=== PATIENT | female | born 1985 | race Caucasian/White ===

== ENCOUNTER 2019-03-21 17:16 | Inpatient (IN) | payer MEDICAID ==
[~2019-03-21] VITALS: Ht 152.4 cm; Wt 61.9 kg
[2019-03-21 17:45] VITALS: Ht 152.4 cm; Wt 61.9 kg
[2019-03-21] MEDS: LACTATED RINGER'S 1,000 ML IV SCH ×2 (18:43→20:37)
[2019-03-21] MEDS ORDERED: TERBUTALINE 1 ML ONE (18:46)
[2019-03-21] MEDS ORDERED: TERBUTALINE 1 MG/ML INJ SC ONE (19:00)
[2019-03-21] MEDS ORDERED: MAGNESIUM SULFATE 4 GM/100 ML 100 ML IV ONE (20:00)
[2019-03-21] MEDS ORDERED: ACETAMINOPHEN 325 MG TAB PO PRN (20:00)
[2019-03-21] MEDS: BETAMET NA PHOS/AC(6 MG/ML) 2 ML INJ SYG IM SCH (21:04)
[2019-03-21] MEDS: MAGNESIUM SULFATE 20 GM/500 ML 500 ML IV SCH (21:34)
--- NOTE | 2019-03-22 00:26 | TRIAGE ---
OB Triage Datetime Report Generated by CPN: 03/22/2019 00:26 Datetime: 03/21/2019 23:50 Labor Evaluation Frequency: OCCASIONAL Monitor Mode: External Duration (sec)2399: 40-50 Quality: Mild Resting Tone [place]: Relaxed Heart Rate FHR Baseline Rate: 130 Monitor Mode: External US Variability: Moderate 6-25 bpm Accelerations: 15X15 Decelerations: None Category: Category I Pain Assessment Pain Scale: 3 Pain Presence: Intermittent Pain Type: Contraction Pain Location: Abdomen; Back Pain Goal: 3 Pain Relief Measures: Comfort Measures Datetime: 03/21/2019 22:50 Labor Evaluation Frequency: IRREGULAR Monitor Mode: External Duration (sec)2399: 40-60 Quality: Mild Resting Tone [place]: Relaxed Heart Rate FHR Baseline Rate: 130 Monitor Mode: External US Variability: Moderate 6-25 bpm Accelerations: 15X15 Decelerations: None Category: Category I Pain Assessment Pain Scale: 3 Pain Presence: Intermittent Pain Type: Contraction Pain Location: Abdomen; Back Pain Goal: 3 Pain Relief Measures: Comfort Measures Datetime: 03/21/2019 21:55 Stage of : Antepartum Assessment Type: Ongoing Assessment Maternal Assessment Level of Consciousness: Fully Conscious DTR's/Clonus: DTRs 2+; No Clonus Headache: Denies Blurred Vision: No Respiratory Effort: Unlabored; Regular Rhythm; Equal Expansion Breath Sounds, Left: Clear and Equal Breath Sounds, Right: Clear and Equal Nausea/Vomiting: Denies RUQ Epigastric Pain: Denies Lower Extremities Edema: None Degree: None Upper Extremities Edema: None Degree: None Facial Edema: None Temperature Route: Oral Fall Risk Assessment History of Falling: (0) No Secondary Diagnosis: (0) No Ambulatory Aid: (0) Bedrest/Nurse Assist IV Therapy: (0) No Gait: (0) Normal/Bedrest/Immobile Mental Status: (0) Oriented to Own Ability Fall Score: 0 Fall Risk Score Definition: No Risk: No action required Pain Assessment Pain Scale: 3 Pain Presence: Intermittent Pain Type: Cramping; Contraction Pain Location: Abdomen; Back Pain Goal: 3 Pain Relief Measures: Comfort Measures Datetime: 03/21/2019 21:52 Monitor Mode: External Contraction Comments: PLACED. Monitor Mode: External US Comments: PLACED AFTER PT TRANSFERRED FROM LND. Datetime: 03/21/2019 21:40 Stage of : Antepartum Maternal Assessment Level of Consciousness: Fully Conscious Labor Evaluation Frequency: IRREGULAR Monitor Mode: External Duration (sec)2399: 40-70 Quality: Mild Pattern: Normal: <= 5 Contractions in 10 Minutes Resting Tone [place]: Relaxed Heart Rate FHR Baseline Rate: 135 Monitor Mode: External US Variability: Moderate 6-25 bpm Accelerations: 15X15 Decelerations: None Category: Category I Datetime: 03/21/2019 21:00 Stage of : Antepartum Maternal Assessment Level of Consciousness: Fully Conscious Labor Evaluation Frequency: IRREGULAR Monitor Mode: External Duration (sec)2399: 40-70 Quality: Mild Pattern: Normal: <= 5 Contractions in 10 Minutes Resting Tone [place]: Relaxed Heart Rate FHR Baseline Rate: 140 Monitor Mode: External US Variability: Marked >25 bpm Accelerations: 15X15 Decelerations: None Category: Category II Datetime: 03/21/2019 20:00 Stage of : OB Triage Maternal Assessment Level of Consciousness: Fully Conscious Labor Evaluation Frequency: IRREGULAR Monitor Mode: External Duration (sec)2399: 40-70 Quality: Mild Pattern: Normal: <= 5 Contractions in 10 Minutes Resting Tone [place]: Relaxed Heart Rate FHR Baseline Rate: 140 Monitor Mode: External US Variability: Moderate 6-25 bpm Accelerations: 15X15 Decelerations: None Category: Category I Datetime: 03/21/2019 19:42 Pain Assessment Pain Scale: 7 Pain Presence: Intermittent Pain Type: Contraction Pain Location: Abdomen; Back Pain Goal: 2 Pain Relief Measures: Comfort Measures Datetime: 03/21/2019 19:00 Stage of : OB Triage Maternal Assessment Level of Consciousness: Fully Conscious DTR's/Clonus: DTRs 1+ Headache: Denies Breath Sounds, Left: Clear and Equal Breath Sounds, Right: Clear and Equal Nausea/Vomiting: Denies RUQ Epigastric Pain: Denies Labor Evaluation Frequency: IRREGULAR Monitor Mode: External Duration (sec)2399: 40-70 Quality: Mild Pattern: Normal: <= 5 Contractions in 10 Minutes Resting Tone [place]: Relaxed Heart Rate FHR Baseline Rate: 135 Monitor Mode: External US Variability: Moderate 6-25 bpm Accelerations: 15X15 Decelerations: None Category: Category I Pain Assessment Pain Scale: 6 Pain Presence: Intermittent Pain Type: Contraction Pain Location: Abdomen; Back Pain Goal: 3 Vaginal Bleeding: None Cervix, Consistency: Firm Cervix, Position: Posterior Datetime: 03/21/2019 18:29 Stage of : OB Triage Maternal Assessment Level of Consciousness: Fully Conscious DTR's/Clonus: DTRs 1+ Headache: Denies Blurred Vision: No Respiratory Effort: Unlabored Breath Sounds, Left: Clear and Equal Breath Sounds, Right: Clear and Equal Nausea/Vomiting: Denies RUQ Epigastric Pain: Denies Facial Edema: None Labor Evaluation Frequency: 2-4 Monitor Mode: External Duration (sec)9239: 50-70 Quality: Mild Pattern: Normal: <= 5 Contractions in 10 Minutes Resting Tone [place]: Relaxed Heart Rate FHR Baseline Rate: 135 Monitor Mode: External US Variability: Moderate 6-25 bpm Accelerations: 15X15 Decelerations: None Category: Category I Pain Assessment Pain Scale: 6 Pain Presence: Intermittent Pain Type: Contraction Pain Location: Abdomen; Back Pain Goal: 3 Vaginal Exam Dilatation (cms): 0.0 Effacement (%): 0 Station: -3 Exam By: VÍCTOR HUERTA Vaginal Bleeding: None Cervix, Consistency: Firm Cervix, Position: Posterior Datetime: 03/21/2019 17:52 Respiratory Effort: Unlabored Breath Sounds, Left: Clear and Equal Breath Sounds, Right: Clear and Equal Labor Evaluation Frequency: NONE Monitor Mode: External Resting Tone [place]: Relaxed Heart Rate FHR Baseline Rate: 135 Variability: Moderate 6-25 bpm Accelerations: 15X15 Decelerations: None Category: Category I Pain Assessment Pain Scale: 6 Pain Presence: Intermittent Pain Type: Cramping Pain Location: Abdomen; Back Pain Goal: 3 Datetime: 03/21/2019 17:48 Assessment Type: Triage Maternal Assessment Level of Consciousness: Fully Conscious DTR's/Clonus: DTRs 2+; No Clonus Headache: Denies Blurred Vision: No Respiratory Effort: Unlabored; Regular Rhythm; Equal Expansion Breath Sounds, Left: Clear and Equal Breath Sounds, Right: Clear and Equal Nausea/Vomiting: Denies RUQ Epigastric Pain: Denies Lower Extremities Edema: None Degree: None Upper Extremities Edema: None Degree: None Facial Edema: None Fall Risk Assessment History of Falling: (0) No Secondary Diagnosis: (0) No Ambulatory Aid: (0) Bedrest/Nurse Assist IV Therapy: (0) No Gait: (0) Normal/Bedrest/Immobile Mental Status: (0) Oriented to Own Ability Fall Score: 0 Fall Risk Score Definition: No Risk: No action required Datetime: 03/21/2019 17:43 EGA: 33.1 Arrived By: Ambulatory Datetime: 03/21/2019 16:57 Time of Arrival: 03/21/2019 16:57 Arrived By: Ambulatory Arrived From: Home Chief Complaint: PT CAME IN C/O LEAKING FLUID X 3 DAYS AND ABDOMINAL AND BACK PAIN Movement: Present Contractions: Denies/Absent Rupture of Membranes: Denies Vaginal Discharge: Denies Recent Sexual Intercouse: Denies Abdominal Trauma: Not Applicable Additional Patient Complaints: NONE Time Provider Notified: 03/21/2019 19:55 Provider Notified: ZOEY Initial Plan: CX LENGHT, BPP, YOSEF, EFW, UA, MONITOR, TERB
--- NOTE | 2019-03-22 01:54 | HP ---
Date/Time of Note Date/Time of Note DATE: 03/22/19 TIME: 01:39 OB - History Hx of Present Free Text/Dictation Late entry note. Patient seen on 03/21/2019 33 years old -2-1-3 with single intrauterine at 33 weeks and 1 day complaining of back pain, abdominal cramp and possible leakage of fluid. She states good movement. She denies nausea, vomiting, shortness of breath, chest pain, headache, visual changes, vaginal bleeding. Risk factors: 1. History of 2 delivery at 26 and 36 weeks 2. Previous delivery x2 Chief Complaint: Abdominal cramps, back pain, possible leakage of fluid Estimated Due Date: May 08, 2019 : 5 Para: 3 Spontaneous : 1 Therapeutic : 0 Care: Good Care Ultrasounds: Normal mid trimester US Obstetrical Complications: None, Other (To ) Medical Complications: None Past Family/Social History * Past Medical: None Past surgical history: delivery x2 Family: Negative Obstetric history: 2 delivery at 26 weeks and 36 weeks. She had one normal delivery and then to delivery OB Admission Exam Vital Signs Vital Signs Blood pressure 128/76, pulse rate 72/minutes, respiratory rate 16/minutes, temperature 98.5 Physical Exam HEENT: WNL Heart: Rhythm Normal Lungs: Clear Abdomen: WNL Extremities: Normal Reflexes: Normal Membranes: Intact Heart Rate: 140's Accelerations: Accelerations Present Decelerations: No Decelerations Varibility: Moderate Contractions on Admission: 6-10 Minutes Apart Intensity: Moderate Last 72 hours Lab Results CBC & BMP 03/21/19 22:50 Liver Function Test 03/21/19 22:50 Alanine Aminotransferase (ALT/SGPT) 18 Albumin 3.5 Alkaline Phosphatase 155 H Aspartate Amino Transf (AST/SGOT) 20 Direct Bilirubin 0.00 Total Protein 6.5 OB Assessment/Plan Induction Method: per Pitocin Protocol Other plan: 33-year-old -2-1-3 with history of 2 prior previous at 26 and 36 and 2 delivery at 33 weeks and 1 day with threatened labor -FHR: No sign of metabolic acidosis- Category I -Continuous EFM, toco -CBC, blood type and screen, CMP -Urinalysis and urine culture -GBS clture -Ultrasound performed EFW 2043 g, cervical length 2.6, YOSEF 17.1, biophysical profile 8 out of 8 -Speculum exam performed no leakage or gush of fluid seen. Nitrazine test negative -Betamethasone 12 mg daily x2 and magnesium sulfate tocolysis -Please see the orders -Obtain record -Perinatology and neonatology consult DEANDRA GREER March 22, 2019 01:53
[2019-03-22] MEDS: LACTATED RINGER'S 1,000 ML IV SCH ×4 (02:45→18:45)
[2019-03-22] MEDS: MAGNESIUM SULFATE 20 GM/500 ML 500 ML IV SCH ×2 (06:30→17:29)
[2019-03-22] MEDS: PRENATAL VITAMIN PO SCH (09:07)
[2019-03-22] MEDS: DOCUSATE SODIUM 100 MG CAP PO SCH (09:07)
--- NOTE | 2019-03-22 16:14 | PN ---
Date/Time of Note Date/Time of Note DATE: 03/22/19 TIME: 16:07 OB Subjective Subjective Subjective Date of admission: 03/21/2019 Hospital day# 2 Patient seen and examined. She states good movement. She denies nausea, vomiting, shortness of breath, chest pain, headache, visual changes, vaginal bleeding or LOF. She is complaining of back pain OB Objective Objective Objective General: Patient appears well, alert and oriented, NAD, appropriate mood and affect ABD: gravid, soft, non-tender. Back: No CVA tenderness (B/L) LE: Mild edema. No clubbing, cyanosis, edema, thigh or calf tenderness bilaterally FHT: 145 bpm , moderate variability with acceleration, no deceleration-category I Contractions: Occasional OB Assessment/Plan Other plan: 33-year-old -2-1-3 with history of 2 prior previous at 26 and 36 and 2 delivery at 33 weeks and 2 day with threatened labor in current -FHR: No sign of metabolic acidosis- Category I -Continuous EFM, toco -SVE: FT/thick/high/cephalic/intact, done last night -Ultrasound performed on : EFW 2043 g, cervical length 2.6, YOSEF 17.1, biophysical profile 8 out of 8 -She received one dose of Betamethasone at 21:00 last night, will receive second dose today, cont magnesium sulfate as tocolysis -Perinatology and neonatology consult DEANDRA GREER March 22, 2019 16:14
[2019-03-22] MEDS: BETAMET NA PHOS/AC(6 MG/ML) 2 ML INJ SYG IM SCH (21:47)
[2019-03-23] MEDS: MAGNESIUM SULFATE 20 GM/500 ML 500 ML IV SCH ×2 (03:44→15:16)
[2019-03-23] MEDS: AL HYDROX/MG HYDROX/SIMETH 30 ML CUP PO PRN (04:22)
[2019-03-23] MEDS: LACTATED RINGER'S 1,000 ML IV SCH ×2 (08:51→21:38)
[2019-03-23] MEDS: PRENATAL VITAMIN PO SCH (11:24)
[2019-03-23] MEDS: DOCUSATE SODIUM 100 MG CAP PO SCH (11:24)
--- NOTE | 2019-03-23 14:19 | CONS ---
DATE OF ADMISSION: 03/21/2019 DATE OF CONSULTATION: 03/23/2019 HISTORY OF PRESENT ILLNESS: The patient is a G5, P3 at 33 weeks and 3 days, presented with l abor. Cervical length 2.6 cm. She received betamethasone on the and . Currently on magnes ium sulfate. RECOMMENDATIONS: Continue with the betamethasone 24 hours after the second dose of betamethasone, th en discontinue after a few hours. If there is no change in the cervical length and patient is comfor table, she can be discharged home with labor precautions. Dictated By: MIESHA WYATT/ANDRES Conf#: [id number] DID#: [id number]
--- NOTE | 2019-03-23 16:55 | PN ---
Date/Time of Note Date/Time of Note DATE: 03/23/19 TIME: 16:49 OB Subjective Subjective Subjective Denies any leaking of fluid, vaginal bleeding decreased movement. Comfortable in bed. Complains of epigastric pain and heartburn OB Objective Objective Objective GA: A&O, NAD Abdomen: soft, Gravid. size consistent with date. NST: Cat 1 , appropriate for gestational age no contraction on the monitor Lungs: Clear to auscultation bilaterally CV: RRR, no cord palpable negative Homans sign Bilateral 2 + patellar reflexes noted CBC & BMP 03/21/19 22:50 Liver Function Test 03/21/19 22:50 Alanine Aminotransferase (ALT/SGPT) 18 Albumin 3.5 Alkaline Phosphatase 155 H Aspartate Amino Transf (AST/SGOT) 20 Direct Bilirubin 0.00 Total Protein 6.5 Magnesium Level Test 03/22/19 00:45 03/22/19 07:16 03/22/19 12:09 03/22/19 18:46 Magnesium Level 4.9 H 5.7 *H 5.8 *H 5.6 *H Test 03/23/19 00:34 03/23/19 06:57 Magnesium Level 5.9 *H 5.6 *H OB Assessment/Plan Other Assessment: IUP at 33 weeks and 3 days History of x2 admitted for contractions, Status post 2 doses of steroids and currently on magnesium No evidence of magnesium toxicity Epigastric pain, GERD symptoms Doing well Continue magnesium until 24 hours after last dose of steroid GERD symptoms,, Pepcid and Maalox, keep the head of the bed elevated Expectant management Follow-up with perinatologist VALERIO CRUZ MD March 23, 2019 16:55
--- NOTE | 2019-03-23 23:56 | QN ---
Documentation Comment called regarding on discontinuation of magnesium sulfate. more than 24hrs after 2nd dose of BMZ also patient had chest pain IUP 33w3d with short cervix 2.6cm plan d/c mg sulfate repeat CVL in am EDITH ZULETA MD March 23, 2019 23:56
[2019-03-24] MEDS: LACTATED RINGER'S 1,000 ML IV SCH ×2 (01:17→09:57)
[2019-03-24] MEDS: PRENATAL VITAMIN PO SCH (09:09)
[2019-03-24] MEDS: DOCUSATE SODIUM 100 MG CAP PO SCH (09:09)
[2019-03-24] MEDS: AL HYDROX/MG HYDROX/SIMETH 30 ML CUP PO PRN (09:56)
--- NOTE | 2019-03-24 11:58 | QN ---
Documentation Comment Patient is a 33-year-old 5 para 3 at 33 weeks and 4 days of gestation with estimated date of delivery May 08, 2019 admitted with labor Patient status post magnesium sulfate, status post steroids for lung maturity She reports positive movement, denies uterine contractions denies vaginal bleeding or leaking fluid, heart rate tracing category 1 Patient's past obstetrical history significant for 1.prior at full-term 2. delivery at 26 weeks of gestation with cerebral palsy 3.second trimester loss twins at 14 weeks of gestation 4. delivery at 36 weeks of gestation Vital signs stable Urine Results - 72 Hrs Test 03/21/19 17:52 Urine Color YELLOW (YELLOW) Urine Clarity SLIGHTLY CLOUDY (CLEAR) Urine pH 6.0 (5.0-9.0) Urine Specific [place] 1.015 (1.003-1.030) Urine Ketones 1+ mg/dL (NEGATIVE) H Urine Nitrite NEGATIVE mg/dL (NEGATIVE) Urine Bilirubin NEGATIVE mg/dL (NEGATIVE) Urine Urobilinogen 1+ mg/dL (NEGATIVE) H Urine Leukocyte Esterase NEGATIVE Jimbo/ul Urine Microscopic RBC 9 /HPF (0-5) H Urine Microscopic WBC 1 /HPF (0-5) Urine Squamous Epithelial Cells FEW /HPF (FEW) Urine Bacteria FEW /HPF (NONE SEEN) A Urine Hemoglobin 2+ mg/dL (NEGATIVE) H Urine Glucose NEGATIVE mg/dL (NEGATIVE) Urine Total Protein NEGATIVE mg/dl (NEGATIVE) Hematology - 72 Hrs Test 03/21/19 22:50 Hematocrit 35.2 % (37.0-47.0) L Hemoglobin 11.8 g/dl (12.0-16.0) L Mean Corpuscular Hemoglobin 30.5 pg (29.0-33.0) Mean Corpuscular Hemoglobin Concent 33.5 g/dl (32.0-37.0) Mean Corpuscular Volume 91.0 fl (82.0-101.0) Mean Platelet Volume 10.9 fl (7.4-10.4) H Platelet Count 243 10^3/UL (140-415) Red Blood Count 3.87 10^6/ul (4.20-5.40) L Red Cell Distribution Width 12.5 % (11.5-14.5) White Blood Count 14.4 10^3/ul (4.8-10.8) H Chemistry Test 03/21/19 22:50 03/22/19 00:45 03/22/19 07:16 03/22/19 12:09 Sodium Level 135 mmol/L (135-144 ) Potassium 4.5 Level mmol/L (3.5-5.1 ) Chloride Level 103 mmol/L (97-110) Carbon Dioxide 22 Level mmol/L (21-31) Anion Gap 10 (5-13) Blood Urea 9 mg/dl (7-20) Nitrogen Creatinine 0.50 mg/dl (0.44-1.0 0) Est Glomerular > 60 Filtrat mL/min (>60) Rate mL/min Glucose Level 97 mg/dl (70-220) Calcium Level 8.9 mg/dl (8.4-10.2 ) Total 0.6 Bilirubin mg/dl (0.2-1.3) Direct 0.00 Bilirubin mg/dl (0.00-0.2 0) Indirect 0.6 Bilirubin mg/dl (0-1.1) Aspartate Amino 20 IU/L (15-46) Transf (AST/SGO T) Alanine 18 IU/L (13-69) Aminotransferas e (ALT/SGPT) Alkaline 155 Phosphatase IU/L (42-121) H Total Protein 6.5 g/dl (6.1-8.1) Albumin 3.5 g/dl (3.3-4.9) Globulin 3.00 g/dl (1.3-3.2) Albumin/Globuli 1.16 n Ratio Magnesium 4.9 5.7 5.8 Level mg/dl (1.7-2.5 mg/dl (1.7-2.5 mg/dl (1.7-2.5 ) H ) *H ) *H Test 03/22/19 18:46 03/23/19 00:34 03/23/19 06:57 03/23/19 22:04 Magnesium 5.6 5.9 5.6 5.0 Level mg/dl (1.7-2.5) mg/dl (1.7-2.5 mg/dl (1.7-2.5 mg/dl (1.7-2.5 *H ) *H ) *H ) H PROCEDURE: Obstetric ultrasound CLINICAL INDICATION: Pain labor TECHNIQUE: Multiple transverse and longitudinal grayscale images of the pelvis were obtained transabdominally and transvaginally.. COMPARISON: 03/21/2019 FINDINGS: The cervix has a length of 3.2 cm. There is possible mild funneling. There is a single live intrauterine gestation. Cardiac activity is present with 161 beats per minute. There is a vertex presentation. The placenta is anterior. There is no evidence for an abruption or placenta previa. RPTAT: AA IMPRESSION: Cervix length measures 3.2 cm. Mild funneling is noted. .Harmeet Santos MD, MD Date Time Electronically viewed and signed by .Harmeet Santos MD, MD on 03/24/2019 08:03 .S/ CC: EDITH ZULETA MD [id number] Abdomen gravid Extremities nontender Assessment and plan Patient was highly recommended that she should be placed on [employer] as outpatient Prometrium 200 mg per vagina at bedtime was ordered Estimated weight to be done today Perinatology follow-up Continue with strict pelvic and bedrest FRANCIS KEARNEY MD March 24, 2019 11:58
[2019-03-24] MEDS ORDERED: PROGESTERONE 100 MG CAP VAG SCH (21:00)
[2019-03-25] MEDS: PRENATAL VITAMIN PO SCH (09:13)
[2019-03-25] MEDS: DOCUSATE SODIUM 100 MG CAP PO SCH (09:13)
--- NOTE | 2019-03-25 11:08 | QN ---
Documentation Comment Patient is a 33-year-old 5 para 3 at 33 weeks and 5 days of gestation with estimated date of delivery May 08, 2019 admitted with labor Patient status post magnesium sulfate, status post steroids for lung maturity She reports positive movement, denies uterine contractions denies vaginal bleeding or leaking fluid, heart rate tracing category 1 Patient strongly desires to go home today I spoke with Dr. Sharp/perinatologist and she indicated that if the cervical length has remained the same/unchanged patient can be discharged home with instructions for strict pelvic rest and bedrest and she should follow-up as outpatient with perinatology Prescription for Prometrium was given PROCEDURE: US OB biophysical profile. Ultrasound cervix CLINICAL INDICATION: decreased movements, labor TECHNIQUE: Multiple sonographic images of the pelvis were obtained. In addition, transvaginal images of the cervix were obtained. The images were reviewed on a PACS workstation. COMPARISON: US PELVIS 03/21/2019 FINDINGS: The cervix measures 3.35 cm in length. There is a single live intrauterine gestation. Cardiac activity is present with 132 beats per minute. There is a vertex presentation. The placenta is anterior. There is no evidence of placental abruption. YOSEF = 14.1 cm. Biophysical profile: movement 2/2 tone 2/2. breathing 2/2 YOSEF 2/2 Total 06/15 RPTAT: AA . IMPRESSION: Normal biophysical profile. Cervix measures 3.35 cm in length. .Harmeet Santos MD, MD Date Time Electronically viewed and signed by .Harmeet Sanots MD, on 03/25/2019 12:09 .S/ CC: FRANCIS KEARNEY MD [id number] FRANCIS KEARNEY MD March 25, 2019 11:08
--- NOTE | 2019-03-25 11:11 | DS ---
Date/Time of Note Date/Time of Note DATE: 03/25/19 TIME: 11:10 Obstetrical Discharge Record Final Diagnosis Final Diagnosis: not delivered Other Final Diagnosis Patient is a 33-year-old 5 para 3 at 33 weeks and 5 days of gestation with estimated date of delivery May 08, 2019 admitted with labor Patient status post magnesium sulfate, status post steroids for lung maturity She reports positive movement, denies uterine contractions denies vaginal bleeding or leaking fluid, heart rate tracing category 1 Patient strongly desires to go home today I spoke with Dr. Sharp/perinatologist and she indicated that if the cervical length has remained the same/unchanged patient can be discharged home with instructions for strict pelvic rest and bedrest and she should follow-up as outpatient with perinatology Prescription for Prometrium was given PROCEDURE: US OB biophysical profile. Ultrasound cervix CLINICAL INDICATION: decreased movements, labor TECHNIQUE: Multiple sonographic images of the pelvis were obtained. In addition, transvaginal images of the cervix were obtained. The images were reviewed on a PACS workstation. COMPARISON: US PELVIS 03/21/2019 FINDINGS: The cervix measures 3.35 cm in length. There is a single live intrauterine gestation. Cardiac activity is present with 132 beats per minute. There is a vertex presentation. The placenta is anterior. There is no evidence of placental abruption. YOSEF = 14.1 cm. Biophysical profile: movement 2/2 tone 2/2. breathing 2/2 YOSEF 2/2 Total 8/8 RPTAT: AA . IMPRESSION: Normal biophysical profile. Cervix measures 3.35 cm in length. .Harmeet Santos MD, Date Time Electronically viewed and signed by .Harmeet Santos MD, on 03/25/2019 12:09 .S/ CC: FRANCIS KEARNEY MD [phone] Complications Tocolytics: Magnesium Sulfate, Other (S/P steroids) Condition on Discharge Physical Assessment Voiding: Yes Bowel Movement: Yes Breast: Soft, non-tender Fundus: Other (Gravid) Calf Tenderness: No Patient Condition: Good Copies To: CC: DEANDRA GREER ; FRANCIS KEARNEY MD March 25, 2019 11:11
== END 2019-03-25 15:20 | disposition home or self-care (01) | DRG 833 ==
LOC: OBT 17:16 → L-D 17:18 → OBT 19:55 → PP1 22:06
PROVIDERS: ADMIT Obstetrics & Gynecology; ATTEND Obstetrics & Gynecology
DX: O47.03 False labor before 37 completed weeks of gestation, third trimester (principal); O76 Abnormality in fetal heart rate and rhythm complicating labor and delivery; Z3A.33 33 weeks gestation of pregnancy
CPT/HCPCS: 36415; 76815; 76817; 76818; 80053; 81001; 83735; 84112; 85025; 87081; 87086; 96360; G0463; J0702; J3105; J3475; J7120